=== PATIENT | female | born 1990 | race Caucasian/White ===

== ENCOUNTER 2016-07-03 08:13 | Inpatient (IN) | payer OTHER ==
[~2016-07-03 08:13] MED LIST: Dinoprostone* 10 MG VAG.SUPP VAGINAL ONE
[2016-07-03 18:21] VITALS: BP 126/64
[2016-07-03] MEDS ORDERED: Nalbuphine* 20 MG/ML 1 ML VIAL IM PRN (21:05)
[2016-07-03] MEDS ORDERED: Promethazine INJ(RESTRICTED)* 25 MG/ML 1 ML VIAL IM ONE (22:30)
[2016-07-04] MEDS ORDERED: Dinoprostone* 10 MG VAG.SUPP VAGINAL ONE (08:42)
== END 2016-07-04 20:00 | disposition home or self-care (01) | DRG 782 ==
LOC: MCHOBOUT 08:13 → MCHOB 22:04
PROVIDERS: ADMIT Midwife; ATTEND Midwife
PROC: 4A1HX4Z Monitoring of Products of Conception, Cardiac Electrical Activity, External Approach (ICD-10-PCS; principal; 2016-07-03)
PROC: 3E0P7GC Introduction of Other Therapeutic Substance into Female Reproductive, Via Natural or Artificial Opening (ICD-10-PCS; 2016-07-03)
DX: O48.0 Post-term pregnancy (principal); Z82.49 Family history of ischemic heart disease and other diseases of the circulatory system; Z3A.41 41 weeks gestation of pregnancy
CPT/HCPCS: 59200; 76815

== ENCOUNTER 2016-07-07 08:11 | Inpatient (IN) | payer OTHER ==
[2016-07-07] MEDS ORDERED: Oxytocin in LR* 20 UNITS/1,000 ML BAG IVPB SCH ×2 (10:00→17:00)
[2016-07-07 11:25] LABS: Hematocrit 39 % (35-47); Hemoglobin 13.2 g/dl (12.0-16.0); Mean Corpuscular HGB Conc 34 g/dl (31-36); Mean Corpuscular Hemoglobin 30 pg (27-31); Mean Corpuscular Volume 87 fL (80-97); Mean Platelet Volume 9 um3 (7.4-10.4); Red Blood Count 4.45 10^6/ul (4.0-5.4); Red Cell Distribution Width 14 % (10.5-15); White Blood Count 8.4 10^3/ul (3.5-10.8)
[2016-07-07] MEDS ORDERED: fentaNYL* 50 MCG/ML 2 ML VIAL (100 MCG VIAL) ONE (15:31)
[2016-07-07] MEDS ORDERED: Phenylephrine IV* 40 MCG/ML 10 ML SYRINGE IV PUSH PRN ×2 (16:09)
[2016-07-07] MEDS ORDERED: EPHEDrine (Pressors)* 50 MG/ML VIAL IV PUSH PRN ×2 (16:09)
[2016-07-07] MEDS ORDERED: Tetan/Diph/Pertus SYR(Tdap)* 0.5 ML SYR(BOOSTRIX) use SYR IM ONE (16:44)
[2016-07-07] MEDS ORDERED: Dibucaine 1% 28.35 GM TUBE PR PRN (16:44)
[2016-07-07] MEDS ORDERED: Acetaminophen TAB* 325 MG PO PRN (16:44)
[2016-07-07] MEDS ORDERED: Witch Hazel PAD* JAR TOPICAL PRN (16:44)
[2016-07-07] MEDS: Ibuprofen TAB* 600 MG PO PRN (21:30)
[2016-07-07] MEDS: Docusate CAP* 100 MG PO SCH (21:31)
[2016-07-07] MEDS ORDERED: Lidocaine 1% MPF* 2 ML VIAL ONE (23:29)
[2016-07-08] MEDS: Ibuprofen TAB* 600 MG PO PRN ×3 (04:42→16:56)
[2016-07-08 07:29] LABS: Hematocrit 33 % (35-47); Hemoglobin 11.4 g/dl (12.0-16.0); Mean Corpuscular HGB Conc 35 g/dl (31-36); Mean Corpuscular Hemoglobin 31 pg (27-31); Mean Corpuscular Volume 88 fL (80-97); Mean Platelet Volume 9 um3 (7.4-10.4); Red Blood Count 3.73 10^6/ul (4.0-5.4); Red Cell Distribution Width 14 % (10.5-15); White Blood Count 10.4 10^3/ul (3.5-10.8)
[2016-07-08] MEDS: Docusate CAP* 100 MG PO SCH ×2 (08:38→16:56)
[2016-07-08] MEDS ORDERED: Ferrous Gluconate TAB* 324 MG TAB PO SCH (09:00)
--- NOTE | 2016-07-08 15:52 | PTEDU ---
Patient Name: SAMSON ALFORD SAMSON ALFORD selected video: Never Ever Shake a Baby to view on 07/08/2016 at 3:52:08 PM from [facility] – [place], [place] [id number]
[2016-07-08 15:57] VITALS: BP 118/60
== END 2016-07-08 17:28 | disposition home or self-care (01) | DRG 775 ==
LOC: MCHOBOUT 08:11 → MCHOB 09:01
PROVIDERS: ADMIT Midwife; ATTEND Nurse Practitioner
PROC: 10E0XZZ Delivery of Products of Conception, External Approach (ICD-10-PCS; principal; 2016-07-07)
PROC: 0KQM0ZZ Repair Perineum Muscle, Open Approach (ICD-10-PCS; 2016-07-07)
PROC: 10907ZC Drainage of Amniotic Fluid, Therapeutic from Products of Conception, Via Natural or Artificial Opening (ICD-10-PCS; 2016-07-07)
PROC: 3E033VJ Introduction of Other Hormone into Peripheral Vein, Percutaneous Approach (ICD-10-PCS; 2016-07-07)
DX: O48.0 Post-term pregnancy (principal); O70.1 Second degree perineal laceration during delivery; Z3A.41 41 weeks gestation of pregnancy; Z37.0 Single live birth
CPT/HCPCS: 36415; 85025; 86850; 86900; 86901; A9270-GY; J3010

== ENCOUNTER 2017-09-12 16:20 | Emergency (ER) | payer OTHER ==
[2017-09-12 20:05] LABS: ABS Basophils 0.1 10^3/ul (0-0.2); ABS Eosinophils 0.2 10^3/ul (0-0.6); ABS Lymphocytes 3.6 10^3/ul (1.0-4.8); ABS Monocytes 0.8 10^3/ul (0-0.8); ABS Neutrophils 6.1 10^3/ul (1.5-7.7); ABS Nucleated RBC 0 10^3/ul; Eosinophil % 1.9 % (0-6); Hematocrit 39 % (35-47); Hemoglobin 13.5 g/dl (12.0-16.0); Lymphocyte % 33.2 % (25-47); Mean Corpuscular HGB Conc 34 g/dl (31-36); Mean Corpuscular Hemoglobin 29 pg (27-31); Mean Corpuscular Volume 85 fL (80-97); Mean Platelet Volume 7.8 um3 (7.4-10.4); Nucleated Red Blood Cells % 0.1; Platelet Count 338 10^3/ul (150-450); Red Blood Count 4.61 10^6/ul (4.0-5.4); Red Cell Distribution Width 13 % (10.5-15); White Blood Count 10.9 10^3/ul (3.5-10.8)
--- NOTE | 2017-09-12 20:23 | RAD ---
INDICATION: Dizziness and chest pain COMPARISON: None TECHNIQUE: PA and lateral views of the chest were obtained. FINDINGS: The heart and mediastinum are normal in size and contour. The lungs are grossly clear. There is no evidence of large pleural effusion. Visualized bones are normal for the patient's age. There is no radiographic evidence of free air beneath the diaphragm IMPRESSION: No radiographic evidence of acute cardiopulmonary disease.
[2017-09-12] MEDS ORDERED: Potassium Chlor TAB* 20 MEQ TAB.ER PO ONE (20:34)
[2017-09-12] MEDS ORDERED: Meclizine TAB* 12.5 MG PO ONE (20:44)
[2017-09-12 20:56] VITALS: BP 118/79
--- NOTE | 2017-09-12 23:29 | ED ---
Kolby Cabrera Stephanie, scribed for Ria Bardales MD on 09/12/17 at 2009 . Dizziness - HPI Summary HPI Summary: The pt is a 27 y/o F presenting to the ED with c/o dizziness that began on . The pt states her dizziness is intermittent, lasts a few minutes at a time, and is described as room-spinning dizziness. The pt describes her CP like someone's sitting on my chest. Symptoms include SOB, pain in face, hip pain and dry burning eyes. The pt denies LE pain, sore throat and rhinorrhea. She says she thinks she rotated her hip which is the source of her hip pain. She says her legs felt heavy and as though [she] was treading through water yesterday but that has resolved. The pt states she called her PCP who told her to come to the ER. At the beginning of August, the pt states she took amoxicillin with no change of symptoms which include sinus pressure, L ear ache and L nostril pain. LNMP was 08/31/17. - History Of Current Complaint Chief Complaint: EDDizziness Stated Complaint: LIGHT HEADED/DIZZINESS Time Seen by Provider: 09/12/17 19:29 Hx Obtained From: Patient Onset/Duration: Still Present, Gradually Timing: Intermittent Episode Lasting - 1-10 minutes Severity Initially: Moderate Severity Currently: Mild Character: Room Spinning, Dizzy Aggravating Factor(s): Nothing Alleviating Factor(s): Nothing Associated Signs And Symptoms: Positive: Chest Pain, SOB, Other: - pain in face , sinus pressure, hip pain and dry burning eyes, L shoulder pain, L ear ache and L nostril pain - Allergies/Home Medications Allergies/Adverse Reactions: Allergies Allergy/AdvReac Type Severity Reaction Status Date / Time No Known Allergies Allergy Verified 07/07/16 11:09 PMH/Surg Hx/FS Hx/Imm Hx Previously Healthy: Yes Endocrine/Hematology History: Denies: Hx Diabetes, Hx Thyroid Disease Cardiovascular History: Denies: Hx Hypertension Respiratory History: Denies: Hx Asthma History: Denies: Hx Kidney Infection, Other Problems/Disorders Sensory History: Denies: Hx Legally Blind EENT History: Denies: Hx Deafness Psychiatric History: Denies: Hx Anxiety, Hx Depression, Other Psychiatric Issues/Disorders - Surgical History Surgery Procedure, Year, and Place: NONE Infectious Disease History: No Infectious Disease History: Denies: Traveled Outside the [place] in Last 30 Days - Family History Known Family History: Positive: Cardiac Disease - CHF-grandmother, Diabetes - Social History Occupation: Unemployed Lives: With Family Alcohol Use: None Hx Substance Use: No Substance Use Type: Reports: None Hx Tobacco Use: No Smoking Status (MU): Never Smoked Tobacco Have You Smoked in the Last Year: No Review of Systems Negative: Fever Positive: Other - dry, burning eyes Positive: Ear Ache - L ear, Other - L nostril pain. Negative: Sore Throat, Nasal Discharge Positive: Chest Pain Positive: Shortness Of Breath Positive: Other - L shoulder pain, pain in face, hip pain. Negative: LE pain Skin: Negative Neurological: Other - dizziness Psychological: Normal All Other Systems Reviewed And Are Negative: Yes Physical Exam - Summary Physical Exam Summary: Appearance: Ill-appearing, minimal pain distress, Well-nourished Skin: Warm, color reflects adequate perfusion Head: Normal Head/Face inspection Eyes: Conjunctiva clear ENT: Normal inspection, TM clear bilaterally, L nostril dry and has dried blood at the superior apex, no swelling of turbinates, no exudate, sinus tenderness in frontal and maxillary bilaterally. Neck: Supple, no nodes, no JVD. Respiratory: Lungs clear, Normal breath sounds, no respiratory distress Cardio: RRR, No murmur, pulses normal, brisk capillary refill Abdomen: soft, nontender Bowel sounds: present Musculoskeletal: Strength Intact/ ROM intact. No calf tenderness. No edema, no hip or shoulder tenderness on palpation Psychological: Normal Neuro: Alert, muscle tone normal, nonfocal. Triage Information Reviewed: Yes Vital Signs On Initial Exam: Initial Vitals Temp Pulse Resp BP Pulse Ox 98.9 F 85 20 140/62 100 09/12/17 16:28 09/12/17 16:28 09/12/17 16:28 09/12/17 16:28 09/12/17 16:28 Vital Signs Reviewed: Yes Diagnostics - Vital Signs Vital Signs Temp Pulse Resp BP Pulse Ox 09/12/17 18:25 98.7 F 84 20 136/66 09/12/17 16:28 98.9 F 85 20 140/62 100 - Laboratory Lab Results: Lab Results 09/12/17 09/12/17 09/12/17 Range/Units 19:48 19:48 19:48 WBC 10.9 H (3.5-10.8) 10^3/ul RBC 4.61 (4.0-5.4) 10^6/ul Hgb 13.5 (12.0-16.0) g/dl Hct 39 (35-47) % MCV 85 (80-97) fL MCH 29 (27-31) pg MCHC 34 (31-36) g/dl RDW 13 (10.5-15) % Plt Count 338 (150-450) 10^3/ul MPV 7.8 (7.4-10.4) um3 Neut % (Auto) 56.4 (38-83) % Lymph % (Auto) 33.2 (25-47) % Petroleum % (Auto) 7.3 H (0-7) % Eos % (Auto) 1.9 (0-6) % Baso % (Auto) 1.2 (0-2) % Absolute Neuts (auto) 6.1 (1.5-7.7) 10^3/ul Absolute Lymphs (auto) 3.6 (1.0-4.8) 10^3/ul Absolute Monos (auto) 0.8 (0-0.8) 10^3/ul Absolute Eos (auto) 0.2 (0-0.6) 10^3/ul Absolute Basos (auto) 0.1 (0-0.2) 10^3/ul Absolute Nucleated RBC 0 10^3/ul Nucleated RBC % 0.1 INR (Anticoag Therapy) 0.90 (0.77-1.02) D-Dimer, Quantitative < 200 (Less Than 230) ng/mL Sodium 138 L (139-145) mmol/L Potassium 3.4 L (3.5-5.0) mmol/L Chloride 103 (101-111) mmol/L Carbon Dioxide 27 (22-32) mmol/L Anion Gap 8 (2-11) mmol/L BUN 11 (6-24) mg/dL Creatinine 0.61 (0.51-0.95) mg/dL Est GFR ( Amer) 149.1 (>60) Est GFR (Non-Af Amer) 116.0 (>60) BUN/Creatinine Ratio 18.0 (8-20) Glucose 90 (70-100) mg/dL Calcium 9.8 (8.6-10.3) mg/dL Magnesium 2.2 (1.9-2.7) mg/dL Total Bilirubin 0.40 (0.2-1.0) mg/dL AST 14 (13-39) U/L ALT 13 (7-52) U/L Alkaline Phosphatase 57 (34-104) U/L Total Creatine Kinase 59 (10-223) U/L Troponin I 0.00 (<0.04) ng/mL C-Reactive Protein 4.20 (< 5.00) mg/L Total Protein 7.8 (6.4-8.9) g/dL Albumin 4.4 (3.2-5.2) g/dL Globulin 3.4 (2-4) g/dL Albumin/Globulin Ratio 1.3 (1-3) TSH 4.16 (0.34-5.60) mcIU/mL Beta HCG, Quant < 0.60 mIU/mL Result Diagrams: 09/12/17 19:48 09/12/17 19:48 Lab Statement: Any lab studies that have been ordered have been reviewed, and results considered in the medical decision making process. - Radiology CXR Xray Interpretation: No Acute Changes Radiology Interpretation Completed By: Radiologist - No radiographic evidence of acute cardiopulmonary disease. ED physician has reviewed this report. - EKG 16:31 Cardiac Rate: NL EKG Rhythm: Sinus Rhythm - [address] Segment: Normal Ectopy: None EKG Interpretation: nml AVIVCT, nml QTc, and nml axis. EKG Comparison: Other - no prior to compare Re-Evaluation - Re-Evaluation First Eval Re-Evaluation Time: 20:52 Change: Improved - The pt's dizziness is resolved and she states she is currently feeling better. Second Eval Re-Evaluation Time: 21:10 Change: Unchanged - ED physician discussed plan of discharge with the pt. The pt understands and agrees with the plan of discharge. Pt states she want to hold off on trying an antibiotic again for possible sinusitis because it gave her a yeast infection before. She will follow up with Dr. Arrieta. Dizzy Course/Dx - Course Course Of Treatment: Labs, CXR, and EKG obtained. ED physician replacing potassium with oral potassium. Meclizine 25 mg PO given with some relief. Pt not orthostatic. Will treat as vertigo. Pt agrees with discharge, to F/U with Dr. Arrieta and keep her ENT appointment, possible move it sooner per Dr. Arrieta. - Diagnoses Differential Diagnosis/HQI/PQRI: Benign Paroxysmal Positional Vertigo, Hypovolemia, Labyrinthitis, Metabolic Abnormality Provider Diagnoses: Chest pain, Dizziness, Hypokalemia, Vertigo Discharge - Sign-Out/Discharge Documenting (check all that apply): Discharge - Discharge Plan Condition: Stable Disposition: HOME Prescriptions: Meclizine TAB* [Antivert 12.5 TAB*] 25 mg PO TID PRN #15 tab PRN Reason: Dizziness Patient Education Materials: Vertigo (ED), Hypokalemia (ED) Referrals: Negro Momin PA [Primary Care Provider] - 3 Days Additional Instructions: Dr. Bardales gave one dose of potassium 40 mEq orally to replace your potassium which was slightly low at 3.4. She also gave you one tablet of meclizine 25mg orally and a prescription for this that you may try for the dizziness. Your labs, EKG and CXR did not show any serious abnormalities to indicate a problem with your heart or lungs. You should follow up with Dr. Momin in 2-3 days. He may want to see if he can get your ENT appointment sooner. Return to the ER if you have any new or worsening symptoms. - Billing Disposition and Condition Condition: STABLE Disposition: HOME The documentation as recorded by the Kolby andrews Stephanie accurately reflects the service I personally performed and the decisions made by , Ria Bardales MD.
== END 2017-09-12 21:29 | disposition home or self-care (01) ==
LOC: ED 16:20
DX: R42 Dizziness and giddiness (principal); R07.9 Chest pain, unspecified; E87.6 Hypokalemia; R06.02 Shortness of breath; J02.9 Acute pharyngitis, unspecified; R51 Headache
CPT/HCPCS: 36415; 71046; 80053; 82550; 83735; 84443; 84484; 84702; 85025; 85379; 85610; 86140; 93005; 99283; A9270-GY

== ENCOUNTER 2019-07-26 08:28 | Inpatient (IN) | payer OTHER ==
[2019-07-26] MEDS ORDERED: Misoprostol TAB* 100 MCG PO ONE (09:12)
[2019-07-26] MEDS ORDERED: Buffered Lidocaine 1% SYRIN* 1 ML/SYRINGE INTRADERM ONE (09:12)
[2019-07-26] MEDS ORDERED: Lactated Ringers 1000 ML Bag* 1,000 ML IV ONE (09:12)
--- NOTE | 2019-07-26 09:20 | HP ---
General Information - Reason for Visit Elective 39 week ripening/induction of labor - General Information Maternal Age: 29 Grav: 3 Para: 2 SAB: 0 IEA: 0 Estimated Due Date: 08/02/19 Determined By: LMP Gestational Age in Weeks/Days: 39 0/7 weeks Maternal Blood Type and Rh: AB Positive - Results this Serology/RPR Result: Non-Reactive Rubella Result: Immune HBsAg Result: Negative HIV Result: Negative GBS Culture Result: Positive Past Medical History Delivery History: Hx Uncomplicated Vaginal Delivery, Hx Complicated Vaginal Delivery Delivery History Comment: PPH with first delivery Pertinent Past Medical History: See Records Past Medical History Comment: Depression/anxiety Pertinent Past Surgical History: See Records Past Surgical History Comment: [place] tooth extraction Sinus surgery Pertinent Family History: See Records Family History Comment: Father: coronary heart disease, hypertension, bladder cancer Mother: hypertension, diabetes - Antepartal Records Antepartal Records: Reviewed, Complicated by: - GBS positive status Review of Systems Constitutional: Comfortable CV Complaint: No Respiratory: Shortness of Breath: No Gastrointestinal: No Nausea/Vomiting, Soft Stool Genitourinary: No Dysuria, No Bleeding, No Leaking Fluid Musculoskeletal: No Complaint Neurological: No Headache, No Visual Changes Movement: Normal Exam Allergies/Adverse Reactions: Allergies No Known Allergies Allergy (Verified 07/07/16 11:09) B/P: 113/63, P: 100, R: 20, T: 98.7 - Measurements Height: 5 ft 5.5 in Weight: 241 lb Weight in lbs: [phone] Body Mass Index (BMI): 39.4 Pre- Weight: 161 lb Weight Gained This : 80 lbs and 0 ozs - Exam Breast: Breast Exam Deferred CVA: No CVA Tenderness Extremities: No Edema Heart: Normal Rhythm/Heart Sounds HEENT: No Significant Findings Lungs: Clear Bilaterally Reflexes: DTR 2+ Thyroid: No Thyromegaly - Abdominal Exam Abdomen Exam: Non-Tender, Fundal Height Consistent with Dates - Ultrasound/Biophysical Profile Ultrasound Status: Not Done Targeted Exam Findings See L&D Outpatient Visit Provider Note for Findings: N/A Estimated Weight: 7.5 lb by senait's Cervical Exam: Fingertip Effacement: 50% Station: -2 Presenting Part: Vertex Membrane Status: Intact Bleeding/Discharge: None EFM Findings - External Monitor Findings Baseline Heart Rate: 145 External Monitor Findings: Accelerations Present, No Pattern of Variable or Late Decelerations, Variability Moderate, Baseline Stable Contractions: None Assessment/Plan - Assessment A: IUP at 39 0/7 weeks Category I FHR, no evidence of metabolic acidemia GBS positive Tran Score: 3 P: Admit to inpatient Discussed cervical ripening agents, PARQ discussion re; misoprostol and pt agrees Begin GBS prophylaxis once active Reassess PRN Anticipate SVB - Obstetrical Risk Factors Obstetrical Risk Factors: GBS Positive - Plan Plan: Cervical Ripening, Admit - Anticipate Vaginal Delivery - Date/Time of Admission Date of Admission: 07/26/19 Time of Admission: 09:00
[2019-07-26] MEDS ORDERED: Penicillin G Potassium IV* 5,000,000 UNITS in NS 0.9% 100 ML* 100 ML IVPB ONE (09:23)
[2019-07-26 11:17] LABS: ABS Eosinophils 0.1 10^3/ul (0-0.6); ABS Lymphocytes 1.7 10^3/ul (1.0-4.8); ABS Monocytes 0.6 10^3/ul (0-0.8); ABS Neutrophils 7.6 10^3/ul (1.5-7.7); Eosinophil % 1.2 %; Hematocrit 36 % (35-47); Hemoglobin 12.4 g/dL (12.0-16.0); Lymphocyte % 17.2 %; Mean Corpuscular HGB Conc 34 g/dL (31-36); Mean Corpuscular Hemoglobin 29 pg (27-31); Mean Corpuscular Volume 85 fL (80-97); Mean Platelet Volume 8.2 fL (7.4-10.4); Platelet Count 268 10^3/uL (150-450); Red Blood Count 4.23 10^6 /uL (3.70-4.87); Red Cell Distribution Width 16 % (10-15)
[2019-07-26 11:39] LABS: Urine Benzodiazepine Screen None Detected (None Detect); Urine Opiates Screen None Detected (None Detect)
--- NOTE | 2019-07-26 13:23 | PN ---
Progress Note - Progress Note Date of Service: 07/26/19 Note: S: [place] some UCs with misoprostol. Having some aches consistent with RLP O: B/P: 125/61, P: 74, R: 22, T: 98.3 FHR: baseline 145, moderate variability, + accelerations, no decelerations UCs: irregular, mild VE: 0.5/60/-2. Modest change from last exam Received first dose of GBS prophylaxis A: IUP at 39 0/7 weeks Category I FHR, no evidence of metabolic acidemia Tran score: 3 P: Recommend repeat dose of oral misoprostol. Pt with strong preference to switch to begin trial of pitocin Discussed pitocin not always effective with an unfavorable cervix, but can reassess once adequate contraction pattern achieved Will trial low dose IV pitocin Continue GBS prophylaxis per protocol Reassess PRN Anticipate SVB
[2019-07-26] MEDS: Lactated Ringers 1000 ML Bag* 1,000 ML IV SCH (13:59)
[2019-07-26] MEDS ORDERED: Oxytocin in LR* 20 UNITS/1,000 ML BAG IVPB SCH (14:00)
[2019-07-26] MEDS: Penicillin G Potassium IV* 3,000,000 UNITS in NS 0.9% 100 ML* 100 ML IVPB SCH ×3 (14:30→22:49)
[2019-07-26] MEDS ORDERED: Pseudoephedrine HCL ER TAB* 120 MG PO ONE (15:23)
--- NOTE | 2019-07-26 16:56 | PN ---
Progress Note - Progress Note Date of Service: 07/26/19 Note: S: Reports feeling lots of pressure down low, like the baby is going to come soon. Vocalizing with UCs O: B/P: 125/61, P: 74, R: 22: T: 98.3 FHR: baseline 145, moderate variability, +accelerations, no decelerations UCs: q 2-4 min, moderate to palpation VE: 1/60/-2 A: IUP at 39 0/7 weeks Category I FHR, no evidence of metabolic acidemia Tran score: 4 P: Adelaida desires to continue with pitocin vs alternative agent Interested in trial of nitrous oxide for pain relief Reassess PRN Anticipate SVB
[2019-07-26] MEDS ORDERED: Dinoprostone* 10 MG VAG.SUPP VAGINAL ONE (20:30)
--- NOTE | 2019-07-26 20:36 | PN ---
Progress Note - Progress Note Date of Service: 07/26/19 Note: S: UCs are frequent, using nitrous oxide and breathing through them O: B/P: 129/56, P: 74, R: 16, T: 98.0 FHR: baseline 150, moderate variability, +accelerations, no decelerations UCs: q 1-2.5 min, mild-moderate to palpation VE: 1/60/-2 A: IUP at 39 0/7 weeks Category I FHR, no evidence of metabolic acidemia Tran score: 4 P: Recommended discontinuing pitocin and switching to a cervical ripening agent PARQ discussion cervidil; pt agrees May want morphine/phenergan for therapeutic rest Reassess PRN Anticipate SVB
[2019-07-26] MEDS ORDERED: Promethazine INJ(RESTRICTED)* 25 MG/ML 1 ML VIAL IV ONE (21:30)
[2019-07-26] MEDS ORDERED: Morphine 10 MG/ML VIAL (1 ml) IV ONE (21:30)
[2019-07-27] MEDS: Penicillin G Potassium IV* 3,000,000 UNITS in NS 0.9% 100 ML* 100 ML IVPB SCH ×7 (02:33→21:51)
[2019-07-27] MEDS: Lactated Ringers 1000 ML Bag* 1,000 ML IV SCH ×2 (09:05→12:10)
--- NOTE | 2019-07-27 10:04 | PN ---
Progress Note - Progress Note Date of Service: 07/27/19 Note: Feeling crampy. Got some sleep. VE unchanged post cervidil. Discussion of possible use of Cook balloon and pitocin for continued ripening/induction vs discharge home with return another day due to elective nature of IOL. Patient to decide.
[2019-07-27] MEDS ORDERED: Oxytocin in LR* 20 UNITS/1,000 ML BAG IVPB SCH (12:00)
[2019-07-27] MEDS ORDERED: Promethazine INJ(RESTRICTED)* 25 MG/ML 1 ML VIAL IV PRN (20:06)
[2019-07-27] MEDS ORDERED: Morphine 10 MG/ML VIAL (1 ml) IV ONE (20:06)
[2019-07-28] MEDS: Penicillin G Potassium IV* 3,000,000 UNITS in NS 0.9% 100 ML* 100 ML IVPB SCH ×2 (01:21→05:19)
[2019-07-28] MEDS: Lactated Ringers 1000 ML Bag* 1,000 ML IV SCH (01:22)
--- NOTE | 2019-07-28 07:20 | PN ---
Progress Note - Progress Note Date of Service: 07/28/19 Note: S: Slept fairly well overnight, reports feels like contractions were stronger earlier and now petered out. O: VE: 2-3cm/70/vtx -2 FHT 125, mod sarita, +accels, no decels UCs q 2-3 Pit @ 18 VSS A: IUP @ 39+2 for induction of labor No cervical change after pitocin trial No evidence acidemia Intact membrane P: PARQ discussion continuing cervical ripening vs pitocin rest then restart vs going home with return in 2-7 days or awaiting spontaneous labor. Patient opting to go home and will discuss planning for follow up with on-call.
== END 2019-07-28 08:58 | disposition home or self-care (01) | DRG 833 ==
LOC: MCHOBOUT 08:28 → MCHOB 09:27
PROVIDERS: ADMIT Midwife; ATTEND Midwife
PROC: 3E033VJ Introduction of Other Hormone into Peripheral Vein, Percutaneous Approach (ICD-10-PCS; principal; 2019-07-26)
PROC: 3E0P7VZ Introduction of Hormone into Female Reproductive, Via Natural or Artificial Opening (ICD-10-PCS; 2019-07-26)
DX: O99.820 Streptococcus B carrier state complicating pregnancy (principal); O61.0 Failed medical induction of labor; Z3A.39 39 weeks gestation of pregnancy
CPT/HCPCS: 36415; 80307; 85025; 86850; 86900; 86901; A9270-GY; G0480; J2270; J2540; J2550; S0191

== ENCOUNTER 2019-08-02 18:34 | Inpatient (IN) | payer OTHER ==
[2019-08-02] MEDS ORDERED: Lactated Ringers 1000 ML Bag* 1,000 ML IV ONE (18:57)
--- NOTE | 2019-08-02 19:09 | HP ---
General Information - Reason for Visit IUP at 40 weeks here for term induction of labor - General Information Maternal Age: 29 Grav: 3 Para: 2 SAB: 0 IEA: 0 Estimated Due Date: 08/02/19 Determined By: LMP Gestational Age in Weeks/Days: 40-0/7 Maternal Blood Type and Rh: AB Positive - Results this Serology/RPR Result: Non-Reactive Rubella Result: Immune HBsAg Result: Negative HIV Result: Negative GBS Culture Result: Positive Past Medical History Delivery History: Hx Uncomplicated Vaginal Delivery Delivery History Comment: 04/10/2015 7lbs 11oz male. hemorrhage. Delivered at [facility] [place] by Kristie Gamboa CNM 07/07/2016 7lbs 7oz female. Delivered at [facility] [place] by Lucero Mccarty LM Pertinent Past Medical History: See Records Past Medical History Comment: Hx of depression/anxiety. No current medications Pertinent Past Surgical History: See Records Past Surgical History Comment: [place] tooth extraction 06/2018 Sinus surgery Pertinent Family History: See Records Family History Comment: Father: CAD, Hypertension, Bladder cancer Mother: Hypertension, DM PGM: , heart disease PGF: COPD. , liver disease MGM: Lupus, DM. , old age MGF: , congestive heart failure - Antepartal Records Antepartal Records: Reviewed, Uncomplicated - Obesity. BMI 32.5 on entry to care, TWG 40lbs in ; GBS +, plan abx prophylaxis in labor Review of Systems Constitutional: Comfortable CV Complaint: No Respiratory: Shortness of Breath: No Gastrointestinal: No Nausea/Vomiting, Normal Bowel Movement Genitourinary: No Dysuria, No Bleeding, No Leaking Fluid Musculoskeletal: No Complaint, No Epigastric Pain Neurological: No Headache, No Visual Changes Movement: Normal Exam Allergies/Adverse Reactions: Allergies No Known Allergies Allergy (Verified 07/26/19 09:31) BP 128/65 HR 90 RR 18 T 97.6 SpO2 99% on RA - Measurements Height: 5 ft 5 in Weight: 245 lb Weight in lbs: 245.683892 Body Mass Index (BMI): 40.7 Pre- Weight: 190 lb Weight Gained This : 55 lbs and 0 ozs - Exam Breast: Breast Exam Deferred CVA: No CVA Tenderness Extremities: No Edema Heart: Normal Rhythm/Heart Sounds HEENT: No Significant Findings Lungs: Clear Bilaterally Rectal: Rectal Exam Deferred Reflexes: DTR 2+ Thyroid: No Thyromegaly - Abdominal Exam Abdomen Exam: Non-Tender, Fundal Height Consistent with Dates - Ultrasound/Biophysical Profile Ultrasound Status: Not Done Targeted Exam Findings Estimated Weight: EFW 8lbs by Michell Cervical Exam: 1cm Station: -2 Presenting Part: Vertex Membrane Status: Intact Sterile Speculum Exam: Not done Bleeding/Discharge: None EFM Findings - External Monitor Findings Baseline Heart Rate: 150 External Monitor Findings: Accelerations Present, No Pattern of Variable or Late Decelerations, Variability Moderate, Baseline Stable External Monitor Findings Comment: No evidence of metabolic acidemia Contractions: None Assessment/Plan - Assessment IUP at 40-0/7 No evidence of metabolic acidemia Tran score: 3 - unfavorable for induction GBS positive - Obstetrical Risk Factors Obstetrical Risk Factors: GBS Positive, Obesity - Plan Plan: Cervical Ripening, Admit - Anticipate Vaginal Delivery Plan Comment: Recommend cervical ripening. PARQ Cervidil. Pt and FOB agree. In presence of GBS positive plan IV penicillin prophylaxis with onset active labor or with spontaneous rupture of membranes. Pt plans a labor epidural vs. ITF with onset active labor. Anticipate progression to active labor and . Dr. Carnes aware of pt presence and condition. Agrees with plan - Date/Time of Admission Date of Admission: 08/02/19 Time of Admission: 19:15
[2019-08-02] MEDS ORDERED: Dinoprostone* 10 MG VAG.SUPP VAGINAL STA (19:18)
[2019-08-02] MEDS ORDERED: diPHENhydraMINE PO* 50 MG PO PRN (19:36)
--- NOTE | 2019-08-02 19:36 | PN ---
Progress Note - Progress Note Date of Service: 08/02/19 Note: Quick Note: Cat I FHT. Cervidil placed per vagina at 1930. Pt tolerated well. Will monitor per protocol and re-evaluate in AM or sooner PRN onset active labor. Plan to remove in 12-16 hours or sooner onset active labor, tachysystole , or intolerance. Pt requests PRN rx for Benadryl to help with sleep overnight if needed.
[2019-08-02] MEDS ORDERED: Penicillin G Potassium IV* 5,000,000 UNITS in NS 0.9% 100 ML* 100 ML IVPB ONE (20:00)
[2019-08-03 09:06] LABS: Urine Benzodiazepine Screen None Detected (None Detect); Urine Opiates Screen None Detected (None Detect)
--- NOTE | 2019-08-03 09:10 | PN ---
Progress Note - Progress Note Date of Service: 08/03/19 SOAP: Subjective: Pt comfortable, slept some overnight. Denies UCs, but feels some cramping Objective: Cervix: 2 cm/ 60%/ -2/ vtx FHR: Baseline 140/ moderate variability/ + accels/ no decels Membranes intact Assessment: Pt with more favorable cervix. No evidence of acidemia. Not in labor. Plan: Will initiate trial of Pitocin, and consider AROM when able. Will start abx prophylaxis after Pitocin initiated.
[2019-08-03] MEDS ORDERED: Oxytocin in LR* 20 UNITS/1,000 ML BAG IVPB SCH (10:00)
[2019-08-03 10:20] LABS: ABS Basophils 0.1 10^3/ul (0-0.2); ABS Eosinophils 0.1 10^3/ul (0-0.6); ABS Lymphocytes 2.5 10^3/ul (1.0-4.8); ABS Monocytes 0.5 10^3/ul (0-0.8); ABS Neutrophils 10.5 10^3/ul (1.5-7.7); Eosinophil % 0.9 %; Hematocrit 38 % (35-47); Hemoglobin 12.8 g/dL (12.0-16.0); Mean Corpuscular HGB Conc 34 g/dL (31-36); Mean Corpuscular Hemoglobin 29 pg (27-31); Mean Corpuscular Volume 86 fL (80-97); Platelet Count 285 10^3/uL (150-450); Red Blood Count 4.41 10^6 /uL (3.70-4.87); Red Cell Distribution Width 16 % (10-15); White Blood Count 13.7 10^3/uL (3.5-10.8)
--- NOTE | 2019-08-03 11:06 | PN ---
Progress Note - Progress Note Date of Service: 08/03/19 SOAP: Subjective: Pt feeling more uncomfortable with ctx, coping well. Ambulating in hallways with her . Objective: FHR: baseline 150/ moderate variability/ + accels/ no decels UCs: 2-3 minutes Pitocin at 4 mu/min Membranes intact Assessment: Pt appears to be progressing towards active labor. No evidence of acidemia. Plan: 1st dose of PCN infused. Will consider AROM 4 hours after 1st dose if no SROM prior.
[2019-08-03] MEDS: Penicillin G Potassium IV* 3,000,000 UNITS in NS 0.9% 100 ML* 100 ML IVPB SCH ×2 (14:08→18:06)
--- NOTE | 2019-08-03 14:12 | PN ---
Progress Note - Progress Note Date of Service: 08/03/19 SOAP: Subjective: Pt no longer feeling UCs. Ambulating in hallway. Objective: FHR: Baseline 150/ moderate variability/ + accels/ no decels UCs: 2-3 minutes Pitocin at 14 mu/ min fluid clear post AROM T-98.4, BP-132/72 Cervix: 2-3 cm/ 60%/ -1/ posterior Assessment: Pt still not in active labor. No evidence of acidemia or chorioamnionitis. Plan: AROM performed with pt consent to clear fluid. Continue Pitocin augmentation. Anticipate progression to active labor and .
--- NOTE | 2019-08-03 15:48 | PN ---
Progress Note - Progress Note Date of Service: 08/03/19 SOAP: Subjective: Pt feeling more uncomfortable. Coping well with ctx. at bedside, supportive. Objective: Cervix: 3 cm/ 70%/ -1/ vtx Clear fluid FHR: 145 baseline/ moderate variability/ + accels/ no decels UCs: 1-3 minutes Assessment: Pt appears to be getting more active. No evidence of acidemia or chorioamnionitis. Plan: Continue Pitocin induction. Epidural when requested. Anticipate progression to complete and .
[2019-08-03] MEDS ORDERED: OBEPIDURAL* 250 ML EPIDURAL ONE (16:31)
[2019-08-03] MEDS ORDERED: Phenylephrine 40 MCG/ML SYRINGE IV PUSH PRN ×2 (16:57)
[2019-08-03] MEDS ORDERED: Famotidine TAB* 20 MG PO PRN (16:57)
[2019-08-03] MEDS ORDERED: EPHEDrine (Pressors)* 50 MG/ML VIAL IV PUSH PRN ×2 (16:57)
[2019-08-03] MEDS ORDERED: Sodium Citrate/Citric Acid* 15 ML UDC PO PRN (16:57)
[2019-08-03] MEDS ORDERED: Lactated Ringers 1000 ML Bag* 1,000 ML IV ONE (16:57)
[2019-08-03] MEDS ORDERED: Lactated Ringers 1000 ML Bag* 1,000 ML IV SCH ×2 (17:00→22:00)
[2019-08-03] MEDS ORDERED: OBEPIDURAL* 250 ML EPIDURAL SCH (17:00)
--- NOTE | 2019-08-03 17:11 | PN ---
Progress Note - Progress Note Date of Service: 08/03/19 SOAP: Subjective: Pt comfortable with epidural. Planning to rest. at bedside. Objective: FHR: Baseline 140/ moderate variability/ + accels/ no decels UCs: 2-3 Cervical exam deferred Fluid clear Pitocin at 15 mu/min Assessment: Pt comfortable with epidural, appears to be in active labor. No evidence of acidemia or chorioamnionitis. Plan: Will recheck in 1 hour. Continue Pitocin.
--- NOTE | 2019-08-03 18:21 | PN ---
Progress Note - Progress Note Date of Service: 08/03/19 SOAP: Subjective: Pt comfortable with epidural. Feels some pressure with ctx but no pain. Objective: Cervix: 4cm/ 80%/ -1/ vtx Clear fluid FHR: Baseline 150/ moderate variability/ + accels/ no decels UCs: 2-3 Pitocin at 17 mu/min Temp: 98.6 BP:122/69 Assessment: Pt making slow but steady progress. No evidence of acidemia or chorioamnionitis. Plan: Continue Pitocin augmentation. Recheck in 2 hours. If no or minimal cervical change consider IUPC.
[2019-08-03] MEDS ORDERED: Ibuprofen TAB* 600 MG ONE (21:36)
[2019-08-03] MEDS ORDERED: Glycerin ADULT SUPP PR PRN (21:47)
[2019-08-03] MEDS ORDERED: Witch Hazel PAD* JAR TOPICAL PRN (21:47)
[2019-08-03] MEDS ORDERED: Dibucaine 1% 28.35 GM TUBE PR PRN (21:47)
--- NOTE | 2019-08-03 21:56 | PROCNOTE ---
[facility] OB: Delivery Note - Delivery A Date of : 08/03/19 Time of : 20:51 [place] Sex: Female Weight at : 3.93 kg Score 1 Minute: 8 Score 5 Minutes: 9 Gestational Age in Weeks and Days at Delivery: 40 Weeks and 1 Days Delivery Method: Spontaneous Vaginal Labor: Induced Did Patient attempt ?: N/A, No Previous Amniotic Fluid: Clear Estimated Blood Loss: 350 Anesthesia/Analgesia: CEI for Labor Delivered By: Danii Persaud - Nursery Level of Nursery: Regular/Bedside - Perineum Perineal Injury: 1st Degree Perineal Repair: By Delivering Practioner - Events Delivery Events of Note: Pitocin During Labor - Additional Delivery Notes Additional Delivery Notes: Pt admitted to L&D for elective term IOL. After cervical ripening with Cervidil , Pitocin started in the morning. Four hours after 1st dose of antibiotics for GBS positive status AROM performed to clear fluid. Pt then made slow steady progress into active labor. She requested and received an epidural with good relief of pain. Once in active labor pt progressed quickly and began spontaneous pushing efforts. Pt coached through slow controlled delivery of the head. Shoulders delivered with gentle traction and placed on maternal abdomen with good tone, HR>100 and vigorous cry. After cord pulsation ceased cord clamped x2 and cut by infant's father. Placenta soon delivered, spontaneous and abisai, and Pitocin increased to 250 cc/ hr. Single large clot expressed after which bleeding was minimal. Examination of the perineum revealed small 1st degree laceration, repaired using 3-0 Rapide suture with good hemostasis and tissue approximation. Pt and stable at this time, anticipate normal course.
[2019-08-03] MEDS: Ibuprofen TAB* 600 MG PO PRN (22:07)
[2019-08-03] MEDS: Acetaminophen TAB* 325 MG PO PRN (22:43)
[2019-08-03] MEDS ORDERED: Lidocaine 1% INJ* 10 MG/ML 30 ML SDV ONE (23:48)
[2019-08-04] MEDS: Acetaminophen TAB* 325 MG PO PRN ×3 (04:03→14:27)
[2019-08-04] MEDS: Ibuprofen TAB* 600 MG PO PRN ×2 (04:03→18:07)
[2019-08-04 07:34] LABS: ABS Basophils 0.1 10^3/ul (0-0.2); ABS Eosinophils 0.2 10^3/ul (0-0.6); ABS Monocytes 0.8 10^3/ul (0-0.8); ABS Neutrophils 8.3 10^3/ul (1.5-7.7); Eosinophil % 1.4 %; Hematocrit 33 % (35-47); Hemoglobin 11.2 g/dL (12.0-16.0); Lymphocyte % 17.9 %; Mean Corpuscular HGB Conc 35 g/dL (31-36); Mean Corpuscular Hemoglobin 29 pg (27-31); Mean Corpuscular Volume 85 fL (80-97); Nucleated Red Blood Cells % 0.1; Platelet Count 227 10^3/uL (150-450); Red Blood Count 3.84 10^6 /uL (3.70-4.87); Red Cell Distribution Width 16 % (10-15); White Blood Count 11.3 10^3/uL (3.5-10.8)
[2019-08-04] MEDS: Docusate CAP* 100 MG PO SCH ×3 (08:28→20:08)
[2019-08-04] MEDS ORDERED: Tetan/Diph/Pertus SYR(Tdap)* 0.5 ML SYR(BOOSTRIX) use SYR contains LATEX IM ONE (09:00)
[2019-08-04] MEDS: Ferrous Gluconate TAB* 324 MG TAB PO SCH ×3 (14:23→21:00)
[2019-08-04] MEDS: Oseltamivir CAP* 75 MG CAP PO SCH (18:07)
[2019-08-05] MEDS: Docusate CAP* 100 MG PO SCH ×2 (07:26→15:36)
[2019-08-05] MEDS: Acetaminophen TAB* 325 MG PO PRN (07:26)
[2019-08-05] MEDS: Ibuprofen TAB* 600 MG PO PRN ×2 (07:26→15:35)
[2019-08-05 08:21] VITALS: BP 121/70
[2019-08-05] MEDS: Oseltamivir CAP* 75 MG CAP PO SCH (18:15)
== END 2019-08-05 18:45 | disposition home or self-care (01) | DRG 807 ==
LOC: MCHOBOUT 18:34 → MCHOB 19:16
PROVIDERS: ADMIT Midwife; ATTEND Midwife
PROC: 10E0XZZ Delivery of Products of Conception, External Approach (ICD-10-PCS; principal; 2019-08-03)
PROC: 0HQ9XZZ Repair Perineum Skin, External Approach (ICD-10-PCS; 2019-08-03)
PROC: 4A1HXCZ Monitoring of Products of Conception, Cardiac Rate, External Approach (ICD-10-PCS; 2019-08-03)
PROC: 3E033VJ Introduction of Other Hormone into Peripheral Vein, Percutaneous Approach (ICD-10-PCS; 2019-08-03)
PROC: 3E0P7VZ Introduction of Hormone into Female Reproductive, Via Natural or Artificial Opening (ICD-10-PCS; 2019-08-03)
PROC: 10907ZC Drainage of Amniotic Fluid, Therapeutic from Products of Conception, Via Natural or Artificial Opening (ICD-10-PCS; 2019-08-03)
DX: O99.824 Streptococcus B carrier state complicating childbirth (principal); Z37.0 Single live birth; O99.214 Obesity complicating childbirth; O70.0 First degree perineal laceration during delivery; Z3A.40 40 weeks gestation of pregnancy
CPT/HCPCS: 36415; 59200; 80307; 85025; 86850; 86900; 86901; A9270-GY; G0480; J2540